=== PATIENT | male | born 2000 | race Caucasian/White ===

== ENCOUNTER 2022-03-03 21:01 | Emergency (ER) | payer MEDICAID, OTHER | END 2022-03-03 21:56 | disposition home or self-care (01) | LOC: VM.ED 21:01 | DX: S62.316A Displaced fracture of base of fifth metacarpal bone, right hand, initial encounter for closed fracture (principal); W22.09XA Striking against other stationary object, initial encounter | CPT/HCPCS: 73130-RT; 99283 ==

== ENCOUNTER 2025-03-09 20:19 | Emergency (ER) | payer SELFPAY | END 2025-03-09 21:19 | disposition home or self-care (01) | LOC: SUPCPDRO 20:19 → VM.ED 20:19 | DX: S63.502A Unspecified sprain of left wrist, initial encounter (principal); W10.8XXA Fall (on) (from) other stairs and steps, initial encounter | CPT/HCPCS: 29125; 73110-LT; 99283-25 ==

== ENCOUNTER 2025-07-30 09:08 | Emergency (ER) | payer OTHER ==
[2025-07-30 09:29] LABS: APPEARANCE,URINE SLIGHTLY CLOUDY (CLEAR); GLUCOSE,URINE NEGATIVE (NEGATIVE); OCCULT BLOOD,URINE MODERATE (NEGATIVE)
[2025-07-30 09:38] LABS: SQUAMOUS EPITHELIAL CELLS,UR NOT SEEN /HPF (NOT SEEN)
[2025-07-30] MEDS: cefTRIAXone 500 MG, Lidocaine 1% 1 ML IM ONE (09:54)
[2025-08-01 12:12] LABS: C.TRACHOMATIS BY TMA Negative (Negative); N.GONORRHOEAE BY TMA Negative (Negative)
== END 2025-07-30 10:20 | disposition home or self-care (01) ==
LOC: VM.ED 09:08
DX: N34.2 Other urethritis (principal)
CPT/HCPCS: 81001; 87491; 87591; 96372; 99283; A9270-GY; J0696; J2003